=== PATIENT | female | born 1955 | race Caucasian/White ===

== ENCOUNTER 2020-01-25 14:33 | Emergency (ER) | payer OTHER ==
[2020-01-25 16:26] VITALS: BP 140/55
== END 2020-01-25 16:26 | disposition home or self-care (01) ==
LOC: ED 14:33
DX: M77.9 Enthesopathy, unspecified (principal); S46.001A Unspecified injury of muscle(s) and tendon(s) of the rotator cuff of right shoulder, initial encounter; X58.XXXA Exposure to other specified factors, initial encounter; Y93.89 Activity, other specified; Y92.89 Other specified places as the place of occurrence of the external cause; Y99.8 Other external cause status
CPT/HCPCS: J1885